=== PATIENT | male | born 1935 | race Caucasian/White ===

== ENCOUNTER 2017-09-05 19:54 | Inpatient (IN) | payer MEDICARE ==
[~2017-09-05] VITALS: Ht 180.3 cm; Wt 88.7 kg
[~2017-09-05 19:54] MED LIST: ASPIR 8181 MG PO; AVODART0.5 MG PO; B-121000 MCG PO; CLARITIN10 MG PO; FLOMAX0.4 MG PO; HYDROCHLOROTHIA25 MG PO; LISINOPRIL10 MG PO; LISINOPRIL5 MG PO; METOPROLOL SUCC25 MG PO; METOPROLOL TART25 MG PO; NITROGLYCERIN0.4 MG SL; SUPER B COMPLE150 MG PO
[2017-09-05] MEDS ORDERED: ASPIRIN 81 MG CHEW TAB PO ONE (20:45)
[2017-09-05 20:51] LABS: BASOPHILS % 0.4 % (0.0-1.0); EOSINOPHILS # (AUTO) 0.2 (0.0-0.4); EOSINOPHILS % 2.1 % (0.0-6.0); HEMATOCRIT 41.1 % (38.2-49.6); LYMPHOCYTES # (AUTO) 2.6 (1.0-3.2); MEAN CORPUSCULAR HEMOGLOBIN 30.4 pg (28-32); MEAN CORPUSCULAR HGB CONC 34.1 g/dL (31-35); MEAN CORPUSCULAR VOLUME 89.3 fL (81-99); MONOCYTES # (AUTO) 0.7 (0.2-0.8); MONOCYTES % 9.9 % (4.4-11.3); NEUTROPHILS # (AUTO) 3.7 (2.1-6.9); NEUTROPHILS % 51.3 % (38.7-80.0); PLATELET COUNT 200 x10e3/uL (140-360); RED CELL DISTRIBUTION WIDTH 13.6 % (11.7-14.4)
[2017-09-05] MEDS ORDERED: ALBUTEROL/IPRATROPIUM 3 ML NEB ONE (20:54)
[2017-09-05] MEDS ORDERED: ALBUTEROL/IPRATROPIUM 3 ML NEB NEB ONE (21:00)
[2017-09-05 21:02] LABS: ALANINE AMINOTRANSFERASE 34 IU/L (0-55); ALBUMIN 3.4 g/dL (3.5-5.0); ALBUMIN/GLOBULIN RATIO 0.9 (0.8-2.0); ALKALINE PHOSPHATASE 61 IU/L (40-150); ANION GAP 11.9 mmol/L (8-16); BLOOD UREA NITROGEN 16 mg/dL (7-26); BUN/CREATININE RATIO 15 (6-25); CALCIUM 9.1 mg/dL (8.4-10.2); CARBON DIOXIDE 25 mmol/L (22-29); CHLORIDE 106 mmol/L (98-107); CREATINE KINASE 154 IU/L (30-200); CREATININE, SERUM 1.08 mg/dL (0.72-1.25); EST GLOMERULAR FILTRATION RATE > 60 ML/MIN (60-); GLUCOSE 110 mg/dL (74-118); POTASSIUM 3.9 mmol/L (3.5-5.1); SODIUM 139 mmol/L (136-145)
[2017-09-05] MEDS ORDERED: SODIUM CHLORIDE 0.9% 50ML 50 ML ONE (21:36)
[2017-09-05] MEDS ORDERED: IOPAMIDOL 370 MG/ML 200 ML INFUS..BTL INJ ONE (21:37)
--- NOTE | 2017-09-05 21:53 | Diagnostic Imaging Report ---
CHEST 2 VIEWS, Technique: CHEST 2 VIEWS Comparison: 10/24/2015 Clinical history: Shortness of breath DISCUSSION: See impression IMPRESSION: 1. Mild enlargement of the cardiac silhouette. Aortic calcifications. 2. Hyperinflation which can be seen with obstructive lung disease/emphysema. 3. Central vascular congestion and/or mild edema with trace effusions. Linear left midlung scarring. Consider short-term follow-up to document resolution. Signed by: Dr Erin Bacon MD on 09/05/2017 9:50 PM
--- NOTE | 2017-09-05 22:32 | Diagnostic Imaging Report ---
EXAM: CT CHEST W DATE: 09/05/2017 9:23 PM INDICATION: Shortness of breath COMPARISON: None TECHNIQUE: Multidetector CT scanning of the chest was performed. Coronal and sagittal multiplanar reformations were obtained. IV Contrast: 100 ml Isovue 370/300 FINDINGS: Evaluation for pulmonary embolism is severely degraded by motion artifact precluding evaluation of the segmental/subsegmental levels. No evidence of central pulmonary embolism in the main or lobar or very proximal segmental pulmonary arteries. LUNGS AND PLEURA: Lung bases poorly assessed due to motion. Small layering bilateral pleural effusions with associated atelectasis. Underlying septal thickening. Calcified left upper lobe granulomas and focal lingular scarring. HEART, MEDIASTINUM, VESSELS: Cardiomegaly with left heart enlargement; no pericardial effusion. Coronary artery and aortic atherosclerotic disease. Ascending aorta is mildly enlarged, 4.1 cm. Main pulmonary artery is normal in size. Scattered prominent nodes which may be reactive. Calcified lymph nodes are also noted. UPPER ABDOMEN: Splenic and liver calcified granulomas. MUSCULOSKELETAL: Multilevel degenerative changes. IMPRESSION: 1. Degraded by motion artifact, as above. No evidence of acute central pulmonary embolism. 2. Cardiomegaly with edema, bibasilar atelectasis and small effusions. Signed by: Dr Erin Bacon MD on 09/05/2017 10:28 PM
[2017-09-05] MEDS ORDERED: FUROSEMIDE INJ 10 MG/ML 4 ML VIAL IV ONE (22:45)
[2017-09-05] MEDS ORDERED: FUROSEMIDE INJ 10 MG/ML 4 ML VIAL ONE (22:49)
[2017-09-05] MEDS ORDERED: SODIUM CHLORIDE FLUSH 10 ML SYR INJ PRN (23:00)
--- OUTSIDE RECORDS SUMMARY | 2017-09-05 23:31 | XMS REPORT ---
Author Author [facility] Address Unknown Phone Unavailable Care Team Providers Care Painting Supervisor Name Role Phone MARIE OCONNOR Unavailable Unavailable Problems This patient has no known problems. Allergies, Adverse Reactions, Alerts This patient has no known allergies or adverse reactions. Medications This patient has no known medications. Results Test Description Test Time Test Comments Text Results Atomic Results Result Comments CT CHEST W [place] [address] Patient Name: RUSTY TERRAZSA MR #: [id number] : 1935 Age/Sex: 82/M Req # : [id number] Adm Physician: Ordered by: MARIE OCONNOR MD Report # : [id number] Location: ER Room/Bed: Procedure: 0416 -[id number] CT/CT CHEST W Exam Date: 09/05/17 Exam Time: 2138 REPORT STATUS: Signed EXAM: CT CHEST W DATE: 09/05/2017 9:23 PM INDICATION: Shortness of breath COMPARISON: None TECHNIQUE: Multidetector CT scanning of the chest was performed. Coronal and sagittal multiplanar reformations were obtained. IV Contrast: 100 ml Isovue 370/ 300 FINDINGS: Evaluation for pulmonary embolism is severely degraded by motion artifact precluding evaluation of the segmental/subsegmental levels. No evidence of central pulmonary embolism in the main or lobar or very proximal segmental pulmonary arteries. LUNGS AND PLEURA: Lung bases poorly assessed due to motion. Small layering bilateral pleural effusions with associated atelectasis. Underlying septal thickening. Calcified left upper lobe granulomas and focal lingular scarring. HEART, MEDIASTINUM, VESSELS: Cardiomegaly with left heart enlargement; no pericardial effusion. Coronary artery and aortic atherosclerotic disease. Ascending aorta is mildly enlarged , 4.1 cm. Main pulmonary artery is normal in size. Scattered prominent nodes which may be reactive. Calcified lymph nodes are also noted. UPPER ABDOMEN: Splenic and liver calcified granulomas. MUSCULOSKELETAL: Multilevel degenerative changes. IMPRESSION: 1. Degraded by motion artifact, as above. No evidence of acute central pulmonary embolism. 2. Cardiomegaly with edema, bibasilar atelectasis and small effusions. Signed by: Dr Tammy Bacon MD on 09/05/2017 10:28 PM Dictated By: TAMMY BACON MD 27 Transcribed By: DINA on 09/05/172227 COPY TO: MARIE OCONNOR MD CHEST 2 VIEWS [place] [address] Patient Name: RUSTY TERRAZAS MR #: [id number] : 1935 Age/Sex: 82/M Req # : [id number] Adm Physician: Ordered by: MARIE OCONNOR MD Report # : [id number] Location: ER Room/Bed: Procedure: 0416 [id number] DX/CHEST 2 VIEWS Exam Date: Exam Time: REPORT STATUS: Signed CHEST 2 VIEWS, Technique: CHEST 2 VIEWS Comparison: 10/24/2015 Clinical history: Shortness of breath DISCUSSION: See impression IMPRESSION: 1. Mild enlargement of the cardiac silhouette. Aortic calcifications. 2. Hyperinflation which can be seen with obstructive lung disease/emphysema. 3. Central vascular congestion and/or mild edema with trace effusions. Linear left midlung scarring. Consider short-term follow-up to document resolution. Signed by: Dr Tammy Bacon MD on 09/05/2017 9:50 PM Dictated By: TAMMY BACON MD 49 Transcribed By: DINA on 09/05 COPY TO: MARIE OCONNOR MD
[2017-09-05 23:51] VITALS: BP 114/77
[2017-09-06] VITALS (7 sets, daily range): BP systolic 106–141; BP diastolic 75–87
[2017-09-06] MEDS ORDERED: OXYBUTYNIN CHLOR5 M1 PO (00:58)
[2017-09-06] MEDS ORDERED: LEVOCETIRIZINE D5 MG PO (00:58)
[2017-09-06 06:06] LABS: BASOPHILS % 0.4 % (0.0-1.0); EOSINOPHILS # (AUTO) 0.1 (0.0-0.4); EOSINOPHILS % 1.8 % (0.0-6.0); HEMATOCRIT 40.9 % (38.2-49.6); HEMOGLOBIN 13.9 g/dL (14.0-18.0); LYMPHOCYTES % 28.9 % (18.0-39.1); MEAN CORPUSCULAR HEMOGLOBIN 30.3 pg (28-32); MEAN CORPUSCULAR VOLUME 89.1 fL (81-99); MONOCYTES # (AUTO) 0.8 (0.2-0.8); NEUTROPHILS % 57.3 % (38.7-80.0); PLATELET COUNT 186 x10e3/uL (140-360); RED BLOOD COUNT 4.59 x10e6/uL (4.3-5.7); RED CELL DISTRIBUTION WIDTH 13.6 % (11.7-14.4)
[2017-09-06 06:33] LABS: ALANINE AMINOTRANSFERASE 26 IU/L (0-55); ALBUMIN 3.6 g/dL (3.5-5.0); ALKALINE PHOSPHATASE 67 IU/L (40-150); ANION GAP 14.6 mmol/L (8-16); BLOOD UREA NITROGEN 15 mg/dL (7-26); BUN/CREATININE RATIO 14 (6-25); CALCIUM 9.3 mg/dL (8.4-10.2); CARBON DIOXIDE 24 mmol/L (22-29); CHLORIDE 106 mmol/L (98-107); CREATINE KINASE 136 IU/L (30-200); CREATININE, SERUM 1.09 mg/dL (0.72-1.25); EST GLOMERULAR FILTRATION RATE > 60 ML/MIN (60-); GLUCOSE 105 mg/dL (74-118); POTASSIUM 3.6 mmol/L (3.5-5.1); SODIUM 141 mmol/L (136-145)
[2017-09-06 08:21] LABS: CHOL/HDL RATIO 2.7 (3.9-4.7)
[2017-09-06 08:40] LABS: THYROID STIMULATING HORMONE 1.73 uIU/mL (0.350-4.940)
[2017-09-06] MEDS ORDERED: TAMSULOSIN HCL 0.4 MG CAP PO SCH (09:00)
[2017-09-06] MEDS: LORATADINE 10 MG TAB PO SCH (09:42)
[2017-09-06] MEDS: FUROSEMIDE INJ 10 MG/ML 4 ML VIAL IV SCH ×2 (09:42→16:42)
--- NOTE | 2017-09-06 10:48 | Consultation ---
DATE OF CONSULTATION: September 06, 2017 REASON FOR CONSULTATION: CHF exacerbation. REQUESTING PHYSICIAN: Dr. Tomás Vickers HPI: This is a pleasant, 82-year-old male that presented with shortness of breath. According to the patient and the at the bedside, he had shortness of breath that has been going on for 3 days now that gets worse with walking and coughing. He stated also that he had difficulty lying flat, and he decided to come into the emergency room for evaluation. He has a history of systolic CHF with EF of 20%. He has refused cardiac intervention in the past. He denied any chest pain, any dizziness, any diaphoresis or headache. Troponin was negative. BNP was 553. PAST MEDICAL HISTORY: CHF, BPH and hypertension. PAST SURGICAL HISTORY: Hemorrhoidectomy, hernia repair, bilateral wrist surgery, and back surgery. FAMILY HISTORY: Noncontributory. SOCIAL HISTORY: No smoking. He lives at home with the . MEDICATIONS: See med list. ALLERGIES: HE HAS MULTIPLE ALLERGIES, SEE CHART. REVIEW OF SYSTEMS: Negative except those mentioned above. PHYSICAL EXAMINATION GENERAL: He is awake, alert and oriented times 3. VITAL SIGNS: Temperature 98, heart rate 92, blood pressure 130/78, respirations 15. Oxygen saturation 97% on 2 liters nasal cannula. HEENT: Mucous membranes moist. NECK: Supple. LUNGS: Bilateral with decreased breath sounds. CARDIOVASCULAR: S1 and S2 present. ABDOMEN: Soft. EXTREMITIES: Bilateral lower with no edema. NEUROLOGIC: Intact. LABORATORY DATA: Sodium 141, potassium 3.6, chloride 106, CO2 24, BUN 15, creatinine 1.09, glucose 105. White blood cells 7.03, hemoglobin 13.9, hematocrit 40.9, platelets 186. IMPRESSION 1. Congestive heart failure exacerbation. 2. Hypertension. 3. History of BPH. ASSESSMENT AND PLAN: Will go ahead and get an echocardiogram to reassess the LV and valve function. Will continue diuretic, beta junior and LORIE inhibitor. He had abnormal stress in the past and low EF and had refused cardiac catheterization and ICD, but today he decided to proceed. We will go ahead and set him up for cardiac catheterization and possible ICD placement with EP. Further cardiac workup pending clinical course. Thank you for this consultation. Dictated by Jaci Aguilar NP Job#: [id number]
[2017-09-06 15:26] LABS: CREATINE KINASE MB 2.7 ng/mL (0-5.0)
[2017-09-06] MEDS: FAMOTIDINE 20 MG TAB PO SCH (16:42)
[2017-09-06] MEDS: ENOXAPARIN SOD INJ 40 MG/0.4 ML SYR SC SCH (16:45)
[2017-09-06] MEDS: TAMSULOSIN HCL 0.4 MG CAP PO SCH (21:00)
--- NOTE | 2017-09-06 23:53 | History and Physical ---
PRIMARY CARE PHYSICIAN: Dr. Wei Kate CARDIOLOGY: Dr. Espinal CHIEF COMPLAINT: Shortness of breath with exertion. HISTORY OF PRESENT ILLNESS: This is 82-year-old man with a history of bradycardia and hypotension/hypertension, who was recently taken off his beta junior 2 weeks ago by his primary care doctor, now developing shortness of breath with exertion that prompted visit to hospital. He denies any leg swelling. Denies any chest pain. Imaging showed bilateral pleural effusions. He is admitted for further evaluation and management. PAST MEDICAL HISTORY: Remote history of possible congestive heart failure, hypertension, hyperlipidemia, hypotension, peripheral vascular disease, bradycardia. PAST SURGICAL HISTORY: Tonsillectomy, hernia repair. ALLERGIES: PER ELECTRONIC MEDICAL RECORD. FAMILY HISTORY: Four strokes and 3 MIs in his father. SOCIAL HISTORY: Patient is . He has 5 children. No alcohol or illicits. He has a remote history of smoking. MEDICATIONS: Per electronic medical record. REVIEW OF SYSTEMS: Denies any dizziness or chest pain. PHYSICAL EXAMINATION: VITAL SIGNS: Reviewed. GENERAL APPEARANCE: Tired-appearing man resting in bed. HEENT: Anicteric. Pupils respond to light. No oral lesions. CARDIOVASCULAR: Normal S1 and S2. LUNGS: He has moderate breath sounds, reduced breath sounds at the bases. ABDOMEN: Soft, nontender. EXTREMITIES: Trace edema. SKIN: Dry. PSYCHIATRIC: Flat affect. LABS: Reviewed. MEDICATIONS: Reviewed. ASSESSMENT AND PLAN: This is an 82-year-old man. 1. Acute congestive heart failure. Type unknown. Will obtain echocardiogram. Follow up echocardiogram. Cardiology consultation. Continue intravenous Lasix. 2. Bilateral pleural effusions secondary to congestive heart failure exacerbation. Will continue diuretics and obtain inputs and outputs. 3. Overweight state. His body mass index is 27.9. 4. Left bundle-branch block. Will defer to cardiology, unclear whether this is old or new. Defer to Dr. Espinal. 5. Hypertension. Will continue with angiotensin-converting enzyme inhibitor, beta junior. 6. Benign prostatic hypertrophy. Continue Flomax. 7. Prophylaxis. Will use Lovenox and Pepcid. 8. Disposition. Monitor closely. Add aspirin 81 mg daily, and follow up cardiology recommendations. Job#: [id number]
[2017-09-07] VITALS (7 sets, daily range): BP systolic 109–126; BP diastolic 60–79
[2017-09-07] MEDS ORDERED: IOPAMIDOL 370 MG/ML 200 ML INFUS..BTL INJ ONE ×2 (06:35→07:57)
[2017-09-07] MEDS ORDERED: LIDOCAINE HCL 2% LOCAL 20 ML VIAL ONE (06:35)
[2017-09-07] MEDS ORDERED: FENTANYL CITRATE/PF 100MCG/2 ML INJ ONE (06:35)
[2017-09-07] MEDS ORDERED: MIDAZOLAM HCL 2 MG/2 ML VIAL ONE (06:35)
[2017-09-07] MEDS ORDERED: SODIUM CHLORIDE 0.9% 1000ML 1,000 ML ONE (06:35)
[2017-09-07] MEDS ORDERED: HEPARIN SOD/SOD CHLORIDE 2,000 ML ONE (06:35)
--- NOTE | 2017-09-07 08:28 | Consultation ---
DATE OF CONSULTATION: September 06, 2017 REASON FOR CONSULT: Cardiomyopathy. 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 He is short of breath with minimal exertion. He was admitted this time with progressive shortness of breath and found to be volume overloaded. Currently, planning to undergo left heart catheterization by Dr. Espinal. We were consulted to consider defibrillator. No history of syncope or palpitations. REVIEW OF SYSTEMS CONSTITUTIONAL: Negative. CARDIOVASCULAR: As per HPI. RESPIRATORY: Negative. GASTROINTESTINAL: Negative. GENITOURINARY: Negative. MUSCULOSKELETAL: Negative. HEENT: Eyes negative. ENT negative. ALLERGY/IMMUNOLOGY: Negative. PSYCHIATRIC: Negative. PAST MEDICAL HISTORY: Hypertension, cardiomyopathy. SURGICAL HISTORY: Negative. FAMILY HISTORY: No premature coronary artery disease. SOCIAL HISTORY: No smoking, alcohol or illicit drugs. PHYSICAL EXAMINATION VITALS: Blood pressure 128/60, pulse 80, O2 sat 98%. GENERAL: No acute distress. HEENT: Moist mucous membranes. CARDIOVASCULAR: Regular. RESPIRATORY: Clear. ABDOMEN: Soft and nontender. MUSCULOSKELETAL: Two plus distal pulses. NEUROLOGICAL: No focal deficit. SKIN: No lesions. PSYCHIATRY: Normal thought process. EKG is sinus, left bundle branch block. IMPRESSION 1. Chronic nonischemic dilated cardiomyopathy with ejection fraction of 25% to 30% refractory to medical therapy. 2. Congestive heart failure, class III. 3. Left bundle branch block. RECOMMENDATIONS: I had a long discussion with the patient. He will benefit from a cardiac defibrillator for primary prevention of sudden cardiac , and also [employer] given the presence of left bundle branch block. This was explained in detail, benefits and risks, and the procedure in detail as well. The patient voices understanding and wishes to proceed. Will tentatively plan for a biventricular cardiac defibrillator. Will await results from coronary angiogram in case the patient undergoes any revascularization intervention. Then will hold off on defibrillator, and we then plan for procedure 3 months post revascularization. However, if there is no indication for revascularization, then will go ahead as inpatient before discharge. Thank you for letting us participate in Mr. Dominique's healthcare. Job#: [id number] [place]
--- NOTE | 2017-09-07 08:52 | Operative Report ---
DATE OF PROCEDURE: September 07, 2017 INDICATIONS: CHF and cardiomyopathy. ANESTHESIA USED: Two percent lidocaine for local anesthesia and 25 mcg of fentanyl for conscious sedation. DESCRIPTION OF PROCEDURE: After informed consent, patient was brought to the cardiac catheterization laboratory and placed on the table. Both groins were painted and draped in a sterile fashion. Lidocaine injected in the right groin for local anesthesia. The right femoral artery was accessed by Seldinger technique, and a 5-Ethiopian sheath was placed in the right femoral artery. Left main artery was cannulated using a JL4, 5-Ethiopian catheter. Coronary angiogram was performed. Images obtained in multiple views. Attempts were made to cannulate the right coronary artery using a 3DRC catheter and an Amplatz catheter. However, it would not access the ostium selectively. LV-gram was performed using a pigtail catheter. Since the right coronary artery could not be selectively cannulated, ascending aortogram was performed using a pigtail catheter. Patient tolerated the procedure without any complications. 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 REPORT LEFT MAIN: Normal caliber. No significant stenosis. LEFT ANTERIOR DESCENDING: Of moderate to large caliber. Has a 20% proximal lesion. LEFT CIRCUMFLEX: Large caliber dominant vessel and there is a 20% proximal lesion. RIGHT CORONARY ARTERY: It appears to arise from the noncoronary cusp. It was subselective injection. Appears to have some luminal irregularities without any significant stenosis. LV-GRAM: Shows diffuse hypokinesis of the left ventricle. Overall ejection fraction was 15%. HEMODYNAMICS: Aortic pressure is 102/68. LV pressure is 103/7. LVEDP 17. PLAN: Possible ICD. Job#: [id number] [place]
[2017-09-07] MEDS: FUROSEMIDE INJ 10 MG/ML 4 ML VIAL IV SCH ×2 (09:00→16:13)
[2017-09-07] MEDS: LORATADINE 10 MG TAB PO SCH (09:22)
[2017-09-07] MEDS: FAMOTIDINE 20 MG TAB PO SCH ×2 (09:22→16:12)
[2017-09-07] MEDS: METOPROLOL TARTRATE 25 MG TAB PO SCH (09:22)
[2017-09-07] MEDS: LISINOPRIL 2.5 MG TAB PO SCH (09:23)
[2017-09-07] MEDS: ENOXAPARIN SOD INJ 40 MG/0.4 ML SYR SC SCH (16:13)
[2017-09-07] MEDS: TAMSULOSIN HCL 0.4 MG CAP PO SCH (21:35)
[2017-09-08] VITALS: BP 108/62
[2017-09-08 04:00] VITALS: BP 103/67
[2017-09-08 06:15] LABS: BASOPHILS % 0.7 % (0.0-1.0); EOSINOPHILS # (AUTO) 0.1 (0.0-0.4); EOSINOPHILS % 2.3 % (0.0-6.0); HEMATOCRIT 38.4 % (38.2-49.6); HEMOGLOBIN 13.1 g/dL (14.0-18.0); LYMPHOCYTES # (AUTO) 1.8 (1.0-3.2); LYMPHOCYTES % 32.6 % (18.0-39.1); MEAN CORPUSCULAR HEMOGLOBIN 30.5 pg (28-32); MEAN CORPUSCULAR HGB CONC 34.1 g/dL (31-35); MEAN CORPUSCULAR VOLUME 89.3 fL (81-99); MONOCYTES # (AUTO) 0.6 (0.2-0.8); MONOCYTES % 10.7 % (4.4-11.3); NEUTROPHILS % 53.2 % (38.7-80.0); PLATELET COUNT 170 x10e3/uL (140-360); RED CELL DISTRIBUTION WIDTH 13.3 % (11.7-14.4)
[2017-09-08 06:44] LABS: ANION GAP 12.2 mmol/L (8-16); BLOOD UREA NITROGEN 19 mg/dL (7-26); BUN/CREATININE RATIO 20 (6-25); CALCIUM 8.6 mg/dL (8.4-10.2); CARBON DIOXIDE 27 mmol/L (22-29); CHLORIDE 103 mmol/L (98-107); CREATININE, SERUM 0.93 mg/dL (0.72-1.25); EST GLOMERULAR FILTRATION RATE > 60 ML/MIN (60-); GLUCOSE 103 mg/dL (74-118); POTASSIUM 3.2 mmol/L (3.5-5.1); SODIUM 139 mmol/L (136-145)
[2017-09-08 08:00] VITALS: BP 111/55
[2017-09-08] MEDS: FAMOTIDINE 20 MG TAB PO SCH ×2 (08:00→16:30)
--- NOTE | 2017-09-08 08:42 | Progress Note ---
DATE: September 07, 2017 TIME: 7:30 a.m. OVERNIGHT: No events. Feeling a little better. REVIEW OF SYSTEMS: Denies any dizziness or chest pain. VITAL SIGNS: Reviewed. PHYSICAL EXAMINATION GENERAL APPEARANCE: Tired-appearing man resting in bed. HEENT: Anicteric. Pupils respond to light. No oral lesions. CARDIOVASCULAR: Normal S1 and S2. LUNGS: Moderate breath sounds, reduced breath sounds at the bases. ABDOMEN: Soft, nontender. EXTREMITIES: Trace edema. SKIN: Dry. PSYCHIATRIC: Flat affect. LABS: Reviewed. MEDICATIONS: Reviewed. ASSESSMENT: An 82-year-old man. 1. Acute congestive heart failure exacerbation. 2. Bilateral pleural effusions. 3. Overweight state. 4. Left bundle-branch block. 5. Hypertension. 6. BPH. PLAN 1. Follow up echocardiogram. 2. Continue diuretics. 3. Monitor blood pressure. 4. Continue LORIE inhibitor. 5. Continue beta junior. 6. Continue physical therapy. Job#: [id number]
--- NOTE | 2017-09-08 08:45 | Progress Note ---
DATE: September 08, 2017 TIME: 8:17 a.m. OVERNIGHT: The patient had heart catheterization, which showed left ventricular ejection fraction of 15%. No significant coronary artery disease. REVIEW OF SYSTEMS: Denies any chest pain. PHYSICAL EXAMINATION VITAL SIGNS: Reviewed. GENERAL: A tired-appearing man resting in bed. HEENT: Anicteric. Pupils respond to light. No oral lesions. CARDIOVASCULAR: Normal S1 and S2. LUNGS: Moderate breath sounds reduced at the bases. ABDOMEN: Soft, nontender and nondistended. EXTREMITIES: No edema or calf tenderness. NEUROLOGICAL: Alert and oriented times 3. Moving all extremities. SKIN: Dry. PSYCHIATRIC: Normal affect. LABS: Reviewed. MEDICATIONS: Reviewed. ASSESSMENT: An 82-year-old man with: 1. Acute exacerbation of systolic congestive heart failure. 2. Bilateral pleural effusion. 3. Overweight state. 4. Left bundle branch block. 5. BPH. 6. Hypertension. 7. Hypokalemia. PLAN 1. Heart catheterization without any significant coronary artery disease. 2. Left ventricular ejection fraction 15%. Will await defibrillator placement. 3. Hypokalemia. Replace potassium now. 4. Continue LORIE inhibitor, Lasix and metoprolol. 5. Continue PPI. Job#: [id number] KORY
[2017-09-08] MEDS ORDERED: POTASSIUM CHLORIDE 20 MEQ TAB CR PO ONE (08:50)
[2017-09-08] MEDS: LORATADINE 10 MG TAB PO SCH (09:47)
[2017-09-08] MEDS: METOPROLOL TARTRATE 25 MG TAB PO SCH (09:47)
[2017-09-08] MEDS: LISINOPRIL 2.5 MG TAB PO SCH (09:47)
[2017-09-08] MEDS: FUROSEMIDE INJ 10 MG/ML 4 ML VIAL IV SCH ×2 (09:47→17:00)
[2017-09-08 12:00] VITALS: BP 106/58
[2017-09-08] MEDS ORDERED: LIDOCAINE HCL 2% LOCAL 20 ML VIAL ONE ×2 (16:14→17:00)
[2017-09-08] MEDS ORDERED: SODIUM CHLORIDE 0.9% 500ML 500 ML ONE (16:14)
[2017-09-08] MEDS ORDERED: MIDAZOLAM HCL 2 MG/2 ML VIAL ONE (16:26)
[2017-09-08] MEDS ORDERED: FENTANYL CITRATE/PF 100MCG/2 ML INJ ONE (16:26)
[2017-09-08] MEDS ORDERED: SODIUM CHLORIDE 0.9% 1000ML 1,000 ML ONE (16:27)
[2017-09-08] MEDS ORDERED: VANCOMYCIN 1GM/NS 250 ML 250 ML ONE (16:27)
[2017-09-08] MEDS ORDERED: VANCOMYCIN HCL 1 GM VIAL TOP NR (17:00)
[2017-09-08] MEDS: ENOXAPARIN SOD INJ 40 MG/0.4 ML SYR SC SCH (17:00)
[2017-09-08 19:00] VITALS: BP 122/64
[2017-09-08 20:00] VITALS: BP 122/64
[2017-09-08] MEDS: TAMSULOSIN HCL 0.4 MG CAP PO SCH (21:00)
[2017-09-08] MEDS: DOCUSATE SODIUM 100 MG CAP PO SCH (21:56)
[2017-09-08] MEDS: SENNA-S TABLET PO SCH (21:56)
[2017-09-08] MEDS ORDERED: TRAMADOL HCL 50 MG TAB PO PRN (22:00)
[2017-09-09] VITALS (8 sets, daily range): BP systolic 107–130; BP diastolic 60–83
[2017-09-09] MEDS: FAMOTIDINE 20 MG TAB PO SCH ×2 (07:30→16:45)
[2017-09-09] MEDS: FUROSEMIDE INJ 10 MG/ML 4 ML VIAL IV SCH ×2 (09:17→16:45)
[2017-09-09] MEDS: LORATADINE 10 MG TAB PO SCH (09:17)
[2017-09-09] MEDS: LISINOPRIL 2.5 MG TAB PO SCH (09:18)
[2017-09-09] MEDS: METOPROLOL TARTRATE 25 MG TAB PO SCH (09:18)
--- NOTE | 2017-09-09 10:34 | Operative Report ---
DATE OF PROCEDURE: September 08, 2017 REFERRING PHYSICIAN: Dr. Espinal PREOPERATIVE DIAGNOSES 1. Nonischemic dilated cardiomyopathy with ejection fraction of 25% refractory to medical therapy. 2. Congestive heart failure, class III. 3. Left bundle branch block. POSTOPERATIVE DIAGNOSES 1. Nonischemic dilated cardiomyopathy with ejection fraction of 25% refractory to medical therapy. 2. Congestive heart failure, class III. 3. Left bundle branch block. ESTIMATED BLOOD LOSS: 5 mL. PROCEDURES PERFORMED 1. Biventricular cardiac defibrillator implant. 2. Moderate sedation. 3. Moderate conscious sedation was provided under my direct supervision and by circulating nurse. SEDATION: Approximate time 45 minutes of Versed and fentanyl. COMPLICATIONS: None. See sedation form for details. DESCRIPTION OF PROCEDURE: After informed consent was obtained, the patient was brought to the electrophysiology laboratory in a fasting and sedated state. Area over his chest was prepped and draped in the usual sterile fashion. Moderate sedation and prophylactic antibiotics were given. One percent lidocaine was used as local anesthetic. A 3 cm skin incision was made in the left subclavian area. Electrocautery sharp and blunt dissection were used to reach the muscular fascia. A pocket was created for implantation of the device. Vascular access was obtained times 3 in the left axillary vein using modified Seldinger technique, 9-Sami, 9.5-Sami and 6-Sami sheaths were placed. The ventricular lead advanced to the RV apex. R-wave 17, pacing 0.6, arterial 0.5, impedance 570. The coronary sinus was cannulated using AL2 catheter and Wooly wire. Coronary sinus angiogram demonstrated good posterolateral branch, which was successfully cannulated. The lead demonstrated pacing threshold of 0.3 at 0.5. Impedance 770. Then the atrial lead was advanced to the right internal appendage. P-wave 4.4, pacing 0.4, arterial 0.5, and impedance 598. All sheaths were removed from the body. Leads were secured to the fascia using 0 silk. Pocket was irrigated with antibiotic solution using the pulse change director. Hemostasis was meticulous. All leads were connected to the device. The entire ICD system placed in the pocket. The incision was closed using Vicryl and Dermabond. The patient tolerated the procedure well. The procedure was then complete. HARDWARE IMPLANTED: The new defibrillator is [employer] ePAR, model number [id number], [id number]. The atrial lead is [employer] 7740, [id number]. The right ventricular lead is [employer] 3959, [id number]. The left ventricular lead is [employer] 4311, [id number]. IMPRESSION: Successful biventricular cardiac defibrillator implant via left axillary vein. PLAN: Routine postop monitoring in telemetry bed. Chest x-ray. Follow up in 2 weeks. Job#: [id number] [place]
[2017-09-09] MEDS: ENOXAPARIN SOD INJ 40 MG/0.4 ML SYR SC SCH (16:45)
[2017-09-09] MEDS: DOCUSATE SODIUM 100 MG CAP PO SCH (16:45)
[2017-09-09] MEDS: SENNA-S TABLET PO SCH (16:45)
[2017-09-09] MEDS: TAMSULOSIN HCL 0.4 MG CAP PO SCH (20:37)
[2017-09-10 01:05] VITALS: BP 130/80
[2017-09-10 04:00] VITALS: BP 120/81
[2017-09-10] MEDS ORDERED: COLACE100 M1 PO (07:26)
[2017-09-10] MEDS ORDERED: FLOMAX0.4 MG PO (07:26)
[2017-09-10] MEDS ORDERED: FAMOTIDINE20 MG PO (07:26)
[2017-09-10] MEDS ORDERED: LOPRESSOR25 MG PO (07:26)
[2017-09-10] MEDS ORDERED: FUROSEMIDE40 MG PO (07:26)
[2017-09-10] MEDS ORDERED: LISINOPRIL2.5 MG PO (07:26)
[2017-09-10 07:53] VITALS: BP 120/66
[2017-09-10] MEDS: METOPROLOL TARTRATE 25 MG TAB PO SCH (08:38)
[2017-09-10] MEDS: LORATADINE 10 MG TAB PO SCH (08:38)
[2017-09-10] MEDS: FAMOTIDINE 20 MG TAB PO SCH (08:38)
[2017-09-10] MEDS: LISINOPRIL 2.5 MG TAB PO SCH (08:39)
[2017-09-10] MEDS: SENNA-S TABLET PO SCH (08:39)
[2017-09-10] MEDS: DOCUSATE SODIUM 100 MG CAP PO SCH (09:00)
[2017-09-10] MEDS ORDERED: FUROSEMIDE 40 MG TAB PO SCH (10:00)
--- NOTE | 2017-09-12 07:46 | Progress Note ---
DATE: September 09, 2017 TIME: 7 a.m. OVERNIGHT: No events. REVIEW OF SYSTEMS: Denies any dizziness. PHYSICAL EXAMINATION VITAL SIGNS: Reviewed. GENERAL: A tired-appearing man resting in bed. HEENT: Anicteric. Pupils respond to light. No oral lesions. CARDIOVASCULAR: Normal S1 and S2. LUNGS: Moderate breath sounds. ABDOMEN: Soft, nontender and nondistended. EXTREMITIES: No edema. SKIN: Dry. PSYCHIATRIC: Flat affect. LABS: Reviewed. MEDICATIONS: Reviewed. ASSESSMENT: An 82-year-old man with: 1. Acute exacerbation of systolic congestive heart failure. 2. Bilateral pleural effusion. 3. Overweight state. 4. Left bundle branch block. 5. BPH. 6. Hypertension. 7. Hypokalemia. PLAN 1. Continue current medication regimen. 2. AICD. 3. Follow up potassium level. 4. Continue LORIE inhibitor, Lasix and metoprolol. 5. Continue PPI. 6. Discharge planning. Job#: [id number] [place]
--- NOTE | 2017-09-12 08:00 | Discharge Summary ---
PRINCIPAL DIAGNOSES 1. Acute exacerbation of systolic congestive heart failure, status post automatic implantable cardioverter-defibrillator placement. Left ventricular ejection fraction 15%. 2. Bilateral pleural effusions. 3. Overweight state. 4. Left bundle branch block. 5. BPH. 6. Hypokalemia. SECONDARY DIAGNOSIS: Hypertension. CHIEF COMPLAINT: Shortness of breath. HISTORY OF PRESENT ILLNESS: This is an 82-year-old man with shortness of breath. Please refer to the H and P for further details. HOSPITAL COURSE: The patient was found to have bilateral pleural effusions. He was diuresed. He had acute exacerbation of systolic congestive heart failure and underwent heart catheterization. No significant coronary artery disease but he did have left ventricular ejection fraction of about 15%. The patient underwent AICD placement and did well. Subsequently transitioned out of the hospital. DISCHARGE MEDICATIONS: Per electronic medical record and include LORIE inhibitor, Lasix and metoprolol. FOLLOWUP 1. With primary care doctor in 1 week. 2. Follow up with cardiology in 2 weeks. CONDITION ON DISCHARGE: Stable and improving. DISCHARGE LOCATION: Home. Job#: [id number]
== END 2017-09-10 10:06 | disposition home or self-care (01) | DRG 223 ==
LOC: ER 19:54 → ERHOLD 23:29 → MED/SURG2 23:31
PROVIDERS: ADMIT Internal Medicine; ATTEND Internal Medicine
PROC: 4A023N7 Measurement of Cardiac Sampling and Pressure, Left Heart, Percutaneous Approach (ICD-10-PCS; 2017-09-07)
PROC: B2111ZZ Fluoroscopy of Multiple Coronary Arteries using Low Osmolar Contrast (ICD-10-PCS; 2017-09-07)
PROC: B2151ZZ Fluoroscopy of Left Heart using Low Osmolar Contrast (ICD-10-PCS; 2017-09-07)
PROC: 0JH639Z Insertion of Cardiac Resynchronization Defibrillator Pulse Generator into Chest Subcutaneous Tissue and Fascia, Percutaneous Approach (ICD-10-PCS; principal; 2017-09-08)
PROC: 02HL3KZ Insertion of Defibrillator Lead into Left Ventricle, Percutaneous Approach (ICD-10-PCS; 2017-09-08)
PROC: 02H63KZ Insertion of Defibrillator Lead into Right Atrium, Percutaneous Approach (ICD-10-PCS; 2017-09-08)
DX: I11.0 Hypertensive heart disease with heart failure (principal); I44.7 Left bundle-branch block, unspecified; E87.6 Hypokalemia; I50.23 Acute on chronic systolic (congestive) heart failure; E66.9 Obesity, unspecified; Z68.27 Body mass index [BMI] 27.0-27.9, adult; N40.0 Benign prostatic hyperplasia without lower urinary tract symptoms
CPT/HCPCS: 36005; 36140; 36200; 36415; 71046; 71260; 77001; 77002; 80048; 80053; 80061; 82550; 82553; 83036; 83880; 84132; 84443; 84484; 85025; 85379; 93005; 93306; 93452; 93458; 94640; 99284; C1898; J1650; J1940; J2001; J2250; J3370; J7030; J7040; Q9967

== ENCOUNTER 2018-06-13 15:20 | Inpatient (IN) | payer MEDICARE ==
[~2018-06-13] VITALS: Ht 180.3 cm; Wt 85.7 kg
[~2018-06-13 15:20] MED LIST changes: +COLACE100 M1 PO; +FAMOTIDINE20 MG PO; +FUROSEMIDE40 MG PO; +LEVOCETIRIZINE D5 MG PO; +LISINOPRIL2.5 MG PO; +LOPRESSOR25 MG PO; +OXYBUTYNIN CHLOR5 M1 PO
[2018-06-13 15:53] LABS: BASOPHILS % 0.6 % (0.0-1.0); EOSINOPHILS # (AUTO) 0.2 (0.0-0.4); EOSINOPHILS % 2.8 % (0.0-6.0); HEMATOCRIT 45.5 % (38.2-49.6); LYMPHOCYTES # (AUTO) 2.2 (1.0-3.2); LYMPHOCYTES % 34.2 % (18.0-39.1); MEAN CORPUSCULAR HEMOGLOBIN 30.4 pg (28-32); MEAN CORPUSCULAR VOLUME 92.1 fL (81-99); MONOCYTES # (AUTO) 0.7 (0.2-0.8); MONOCYTES % 10.8 % (4.4-11.3); NEUTROPHILS # (AUTO) 3.3 (2.1-6.9); NEUTROPHILS % 51.4 % (38.7-80.0); PLATELET COUNT 165 x10e3/uL (140-360); RED BLOOD COUNT 4.94 x10e6/uL (4.3-5.7); RED CELL DISTRIBUTION WIDTH 13.5 % (11.7-14.4)
[2018-06-13 16:01] LABS: INR 0.92; PROTHROMBIN TIME 13.2 seconds (11.9-14.5)
[2018-06-13 16:02] LABS: PARTIAL THROMBOPLASTIN TIME 28.6 seconds (23.8-35.5)
[2018-06-13 16:11] LABS: ALBUMIN 4.1 g/dL (3.5-5.0); ALBUMIN/GLOBULIN RATIO 1.1 (0.8-2.0); ANION GAP 14.8 mmol/L (8-16); CREATININE, SERUM 1.36 mg/dL (0.72-1.25); POTASSIUM 3.8 mmol/L (3.5-5.1)
[2018-06-13 16:18] LABS: CREATINE KINASE MB 4.3 ng/mL (0-5.0)
[2018-06-13] MEDS ORDERED: METOPROLOL TARTRATE INJ 1 MG/ML VIAL IV NR (16:45)
--- NOTE | 2018-06-13 17:55 | Diagnostic Imaging Report ---
Frontal view of the chest - 2 images HISTORY: Shortness of breath COMPARISON: Chest radiographs September 05, 2017 DISCUSSION: Portable technique, limits sensitivity of the exam. Soft tissue attenuation partially limits sensitivity of the exam. Overlying monitoring leads. Tubes/Lines: A left-sided implanted cardiac device. Lungs and pleura: Mild prominence of the pulmonary interstitial markings. Stable small left calcified granuloma. No evidence of a consolidative pneumonia or pulmonary alveolar edema. No definite pleural effusion or pneumothorax is identified. Heart and mediastinum: The cardiac silhouette and central pulmonary vasculature are mildly enlarged. Bones and soft tissues: Appear unremarkable, given this limited exam. IMPRESSION: Mild cardiomegaly with central pulmonary congestion and mild interstitial edema. Signed by: Dr. Alexis Guerrero D.O., M.M.M. on 06/13/2018 5:52 PM
[2018-06-13] MEDS ORDERED: SODIUM CHLORIDE FLUSH 10 ML SYR INJ PRN (18:45)
[2018-06-13] MEDS ORDERED: METOPROLOL TART50 MG PO (19:03)
[2018-06-13] MEDS ORDERED: GABAPENTIN100 MG PO (19:05)
[2018-06-13] MEDS ORDERED: ECOTRIN325 MG PO (19:05)
[2018-06-13] MEDS ORDERED: COLACE100 MG PO (19:06)
[2018-06-13 20:30] VITALS: BP 110/66
[2018-06-13] MEDS ORDERED: FUROSEMIDE INJ 10 MG/ML 2 ML VIAL IV ONE (23:00)
[2018-06-13] MEDS: GABAPENTIN 100 MG CAP PO SCH (23:15)
--- NOTE | 2018-06-13 23:15 | NUR ---
PT IS TRANSFERRED FROM ER .PT IS AOX3 .DENIES PAIN IV LEFT AC RESPIRATIONS ARE EVEN AND UNLABORED .PT HAS REDNESS TO THE LEFT INNER ANKLE DUE TO BURN.FAMILY AT THE BEDSIDE .CALL [facility] WITH IN REACH
[2018-06-14] VITALS (8 sets, daily range): BP systolic 80–118; BP diastolic 50–72
[2018-06-14 02:01] LABS: CREATINE KINASE MB 3.3 ng/mL (0-5.0)
[2018-06-14 06:07] LABS: BASOPHILS % 0.6 % (0.0-1.0); EOSINOPHILS # (AUTO) 0.3 (0.0-0.4); EOSINOPHILS % 3.9 % (0.0-6.0); HEMATOCRIT 41.3 % (38.2-49.6); HEMOGLOBIN 13.9 g/dL (14.0-18.0); LYMPHOCYTES # (AUTO) 2.2 (1.0-3.2); LYMPHOCYTES % 32.1 % (18.0-39.1); MEAN CORPUSCULAR HEMOGLOBIN 30.5 pg (28-32); MEAN CORPUSCULAR HGB CONC 33.7 g/dL (31-35); MEAN CORPUSCULAR VOLUME 90.6 fL (81-99); MONOCYTES # (AUTO) 0.7 (0.2-0.8); NEUTROPHILS # (AUTO) 3.5 (2.1-6.9); NEUTROPHILS % 52.1 % (38.7-80.0); PLATELET COUNT 159 x10e3/uL (140-360); RED BLOOD COUNT 4.56 x10e6/uL (4.3-5.7); RED CELL DISTRIBUTION WIDTH 13.5 % (11.7-14.4)
[2018-06-14 06:29] LABS: ANION GAP 15.1 mmol/L (8-16); BLOOD UREA NITROGEN 18 mg/dL (7-26); BUN/CREATININE RATIO 18 (6-25); CALCIUM 8.7 mg/dL (8.4-10.2); CARBON DIOXIDE 26 mmol/L (22-29); CHLORIDE 101 mmol/L (98-107); CREATININE, SERUM 0.99 mg/dL (0.72-1.25); EST GLOMERULAR FILTRATION RATE > 60 ML/MIN (60-); GLUCOSE 106 mg/dL (74-118); POTASSIUM 3.1 mmol/L (3.5-5.1); SODIUM 139 mmol/L (136-145)
[2018-06-14 07:00] LABS: CREATINE KINASE MB 2.9 ng/mL (0-5.0)
--- NOTE | 2018-06-14 07:02 | NUR ---
PRIMARY CARE PHYSICIAN: Dr. Wei Kate CARDIOLOGY: Dr. Espinal CHIEF COMPLAINT: Shortness of breath with exertion. HISTORY OF PRESENT ILLNESS: This is 82-year-old man p/w sob, with CHF exa. Pt had all 5 teeth pulled from lower jaw, started eating canned soup with salt load. Developed SOB. No leg edema. PAST MEDICAL HISTORY: Severe Systolic CHF LVEF 15%, B/L pleural effusions, hypertension, hyperlipidemia, hypotension, peripheral vascular disease, bradycardia, LBBB, BPH, Neuropathy PAST SURGICAL HISTORY: Tonsillectomy, hernia repair. ALLERGIES: PER ELECTRONIC MEDICAL RECORD. FAMILY HISTORY: Four strokes and 3 MIs in his father. SOCIAL HISTORY: Patient is . He has 5 children. No alcohol or illicits. He has a remote history of smoking. MEDICATIONS: Per electronic medical record. REVIEW OF SYSTEMS: no f/c/s/N/V/D/MEREDITH/vision changes/skin rash/leg pain/back pain PHYSICAL EXAMINATION: VITAL SIGNS: Reviewed. GENERAL APPEARANCE: Tired-appearing man resting in bed. HEENT: Anicteric. Pupils respond to light. No oral lesions. CARDIOVASCULAR: Normal S1 and S2. LUNGS: reduced BS throughout; no w ABDOMEN: Soft, nontender. EXTREMITIES: Trace edema. SKIN: Dry. PSYCHIATRIC: Flat affect. LABS: Reviewed. MEDICATIONS: Reviewed. ASSESSMENT AND PLAN: This is an 82-year-old man. 1. AECHF- systolicl; lvef was 15%; has AICD; 2.Pulmonary edema 3.Overweight with BMI 26 (less) 4.LBBB 5.HTN 6.BPH 7.MELO 8.Hypokalemia 9.Neuropathy PLAN 1.iv diuretics 2.monitor renal fn 3.monitor K 4.Counseled on avoidance of canned soup and salt 5.strict I/O 6.f/u labs 7.scd; 8.d/c planning Tomás Vickers MD, PhD.
--- NOTE | 2018-06-14 07:07 | NUR ---
PT RESTING .DENIES PAIN .REPORT GIVEN TO THE ON COMING NURSE.
[2018-06-14] MEDS ORDERED: DOCUSATE SODIUM 100 MG CAP PO PRN (07:15)
[2018-06-14 07:32] LABS: CHOL/HDL RATIO 2.9 (3.9-4.7)
[2018-06-14 07:51] LABS: THYROID STIMULATING HORMONE 1.29 uIU/mL (0.350-4.940)
[2018-06-14] MEDS: ASPIRIN 325 MG TAB EC PO SCH (09:00)
[2018-06-14] MEDS: TAMSULOSIN HCL 0.4 MG CAP PO SCH (09:00)
[2018-06-14] MEDS: METOPROLOL TARTRATE 50 MG TAB PO SCH ×2 (09:00→19:15)
[2018-06-14] MEDS ORDERED: FUROSEMIDE INJ 10 MG/ML 4 ML VIAL IV SCH (09:00)
[2018-06-14] MEDS: DUTASTERIDE 0.5 MG CAP PO SCH (09:00)
[2018-06-14] MEDS ORDERED: LISINOPRIL 2.5 MG TAB PO SCH (09:00)
[2018-06-14] MEDS: FUROSEMIDE INJ 10 MG/ML 2 ML VIAL IV SCH ×2 (09:00→17:00)
--- NOTE | 2018-06-14 11:45 | NUR ---
SPOKE WITH DR RUSTY VALDEZ;LOW BP 87/58,ORDERS WRITTEN.
[2018-06-14] MEDS ORDERED: MIDODRINE 2.5 MG TAB PO SCH (12:00)
--- NOTE | 2018-06-14 15:49 | NUR ---
CASE MANAGEMENT INITIAL ASSESSMENT State Trooper to bedside to discuss plan of care with patient/family. CM/SW role and care transitions discussed. Anticipated discharge plan discussed along with duration of care. CM/SW discussed patients right to make decisions in care. CM/SW work hours given. Patient lives: Admit/Transfer: ER POA/Emergency contact: ARAMIS TERRAZAS [phone] Current/Previous Home Health: NONE PCP/Follow-up Care: DR JUAN CARLOS MOYA Current/Previous DME: NONE Other Services: N/A Employment Status: RETIRED Areas of Concerns: NONE Referral Needs: N/A Education Needs: F/U WITH CARDIOLOGY AND PCP IMM/KWONG given and signed (if applicable): IMM SIGNED 06/16 Goal for discharge:HOME WITH CM/SW left business card at the bedside with contact information. Name and number was also written on the patients whiteboard. Patient verbalized understanding of discussion. CM will follow-up with ongoing discharge and transition of care needs.
[2018-06-14] MEDS ORDERED: MIDODRINE HCL 5 MG TABLET PO SCH (16:00)
[2018-06-14] MEDS: MIDODRINE HCL 5 MG TABLET PO SCH (17:30)
--- NOTE | 2018-06-14 19:42 | NUR ---
Received change of shift report from AM nurse. Walking rounds completed.
[2018-06-15] VITALS (7 sets, daily range): BP systolic 82–114; BP diastolic 58–74
--- NOTE | 2018-06-15 | NUR ---
Patient AAOx3. In bed in supine position. Denies any pain or discomfort. Rate rate range from 82-131. Patient denies c.p. When HR at 130 bp is 78/53 or 85/60. Unable to give metoprolol due to low BP. Patient state I feel like dancing. Patient asymptomatic. AAOx3 ambulates with no difficulty noted. at bedside. Continue monitor.
--- NOTE | 2018-06-15 02:00 | NUR ---
Patient rate continue to bounce around. Patient with no sign or symptom noted. Continue monitor.
[2018-06-15 06:08] LABS: BASOPHILS % 0.6 % (0.0-1.0); EOSINOPHILS # (AUTO) 0.3 (0.0-0.4); EOSINOPHILS % 3.9 % (0.0-6.0); HEMATOCRIT 41.4 % (38.2-49.6); HEMOGLOBIN 14.1 g/dL (14.0-18.0); LYMPHOCYTES # (AUTO) 2.2 (1.0-3.2); LYMPHOCYTES % 31.2 % (18.0-39.1); MEAN CORPUSCULAR HEMOGLOBIN 30.6 pg (28-32); MEAN CORPUSCULAR HGB CONC 34.1 g/dL (31-35); MEAN CORPUSCULAR VOLUME 89.8 fL (81-99); MONOCYTES # (AUTO) 0.8 (0.2-0.8); MONOCYTES % 11.1 % (4.4-11.3); NEUTROPHILS # (AUTO) 3.8 (2.1-6.9); NEUTROPHILS % 52.8 % (38.7-80.0); PLATELET COUNT 153 x10e3/uL (140-360); RED BLOOD COUNT 4.61 x10e6/uL (4.3-5.7); RED CELL DISTRIBUTION WIDTH 13.3 % (11.7-14.4)
--- NOTE | 2018-06-15 06:24 | NUR ---
Patient HR elevated to 131. Patient c/o small c.p. Called Dr Vickers and received orders for stat EKG, trops. Consult Dr Meyers. done.
--- NOTE | 2018-06-15 06:34 | NUR ---
IM- Progress note O/N; hypotensive and tachycardic REVIEW OF SYSTEMS: no f/c/s/N/V/D/MEREDITH/vision changes/skin rash/leg pain/back pain PHYSICAL EXAMINATION: VITAL SIGNS: Reviewed. GENERAL APPEARANCE: Tired-appearing man resting in bed. HEENT: Anicteric. Pupils respond to light. No oral lesions. CARDIOVASCULAR: Normal S1 and S2. LUNGS: reduced BS throughout; no w ABDOMEN: Soft, nontender. EXTREMITIES: Trace edema. SKIN: Dry. PSYCHIATRIC: Flat affect. LABS: Reviewed. MEDICATIONS: Reviewed. ASSESSMENT AND PLAN: This is an 82-year-old man. 1. AECHF- systolicl; lvef was 15%; has AICD; 2.Pulmonary edema 3.Overweight with BMI 26 (less) 4.LBBB 5.HTN 6.BPH 7.MELO 8.Hypokalemia 9.Neuropathy PLAN 1.iv diuretics 2.monitor renal fn 3.monitor K 4.Counseled on avoidance of canned soup and salt 5.strict I/O 6.f/u labs 7.scd; 8.d/c planning 06/15 hypotensive and tachycardic; check Tn and EKG now; 2D echo; cardio consult; Hold lasix; d/c BB and aceI. continue midodrine; check cortisol level. Tomás Vickers MD, PhD.
[2018-06-15 07:50] LABS: ANION GAP 14.5 mmol/L (8-16); BLOOD UREA NITROGEN 19 mg/dL (7-26); BUN/CREATININE RATIO 18 (6-25); CALCIUM 8.9 mg/dL (8.4-10.2); CARBON DIOXIDE 26 mmol/L (22-29); CHLORIDE 103 mmol/L (98-107); CREATININE, SERUM 1.07 mg/dL (0.72-1.25); EST GLOMERULAR FILTRATION RATE > 60 ML/MIN (60-); GLUCOSE 102 mg/dL (74-118); POTASSIUM 3.5 mmol/L (3.5-5.1); SODIUM 140 mmol/L (136-145)
[2018-06-15] MEDS: MIDODRINE HCL 5 MG TABLET PO SCH ×3 (08:00→17:30)
[2018-06-15] MEDS: DUTASTERIDE 0.5 MG CAP PO SCH (09:00)
[2018-06-15] MEDS: TAMSULOSIN HCL 0.4 MG CAP PO SCH (09:00)
[2018-06-15] MEDS: ASPIRIN 325 MG TAB EC PO SCH (09:00)
[2018-06-15] MEDS: FUROSEMIDE INJ 10 MG/ML 2 ML VIAL IV SCH ×2 (09:00→17:30)
[2018-06-15] MEDS: METOPROLOL TARTRATE INJ 1 MG/ML VIAL IV PRN (15:30)
--- NOTE | 2018-06-15 15:30 | NUR ---
pt hr 130 ,gave 2.5 metotropol .hr finished 94
--- NOTE | 2018-06-15 17:35 | NUR ---
spoke with dr metzger concerning hr,orders given to give lasix.and would see pt tomorrow.
--- NOTE | 2018-06-15 19:25 | NUR ---
Received change of shift report from AM nurse. Walking rounds completed.
[2018-06-15] MEDS: GABAPENTIN 100 MG CAP PO SCH (20:18)
[2018-06-16] VITALS (8 sets, daily range): BP systolic 99–127; BP diastolic 64–87
--- NOTE | 2018-06-16 | NUR ---
Patient HR from 80-131. HR elevated with activity. at bedside.
--- NOTE | 2018-06-16 00:25 | Consultation ---
DATE OF CONSULTATION: June 15, 2018 CARDIOLOGY CONSULT NOTE REASON FOR CONSULT: Dnxbs-fb-gnpumud systolic CHF exacerbation. CHIEF COMPLAINT: Shortness of breath. HPI: Patient is an 83-year-old man with history of cardiomyopathy, EF less than 15%, status post ICD placement who recently had his teeth pulled and since then he has been eating canned soup. Started developing lower extremity edema and shortness of breath. He did not know that canned soup contains significant amount of sodium. He has been compliant with his medications. Denies any chest pain. REVIEW OF SYSTEMS: As above, otherwise negative. OUTPATIENT MEDICATIONS: Reviewed. FAMILY HISTORY: Noncontributory. SOCIAL HISTORY: Patient does not smoke, drink, or abuse drugs. PHYSICAL EXAMINATION VITAL SIGNS: Temperature 96.5, pulse 66, respiratory rate 18, blood pressure 105/62, and satting 95% on 2 L nasal cannula. GENERAL: Elderly man, no acute distress. CARDIOVASCULAR: Regular rate and rhythm. No murmurs, rubs, or gallops. LUNGS: Clear to auscultation. Bibasilar crackles. ABDOMEN: Soft, nontender, and nondistended. NEURO AND PSYCH: Nonfocal. INPATIENT MEDICATIONS: Reviewed. LABORATORY DATA: Reviewed. BNP on admission was 700. Troponin negative x3. IMAGING DATA: Reviewed. TELEMETRY DATA: Reviewed, shows paced rhythm. ASSESSMENT 1. Rogdg-ny-msjnnfh systolic congestive heart failure. 2. History of implantable cardioverter-defibrillator placement. 3. Pulmonary edema. 4. Hypertension. 5. Acute kidney injury. PLAN: Continue gentle IV diuresis. Patient is already feeling significantly better. Discussed with patient regarding reading labels about sodium. Doing well from cardiovascular standpoint. Can switch to p.o. Lasix today with potential discharge. Thank you for this consult. We will continue to follow. Job#: [id number]
[2018-06-16] MEDS: METOPROLOL TARTRATE INJ 1 MG/ML VIAL IV PRN ×2 (04:09→12:54)
--- NOTE | 2018-06-16 06:01 | NUR ---
Given BP/heart med for HR of 130. Heart rate down to 80 . Continue monitor.
[2018-06-16 06:04] LABS: BASOPHILS % 0.6 % (0.0-1.0); EOSINOPHILS # (AUTO) 0.3 (0.0-0.4); EOSINOPHILS % 3.6 % (0.0-6.0); HEMATOCRIT 41.5 % (38.2-49.6); HEMOGLOBIN 14.7 g/dL (14.0-18.0); LYMPHOCYTES # (AUTO) 2.4 (1.0-3.2); LYMPHOCYTES % 34.5 % (18.0-39.1); MEAN CORPUSCULAR HEMOGLOBIN 31.6 pg (28-32); MEAN CORPUSCULAR HGB CONC 35.4 g/dL (31-35); MEAN CORPUSCULAR VOLUME 89.2 fL (81-99); MONOCYTES # (AUTO) 0.7 (0.2-0.8); MONOCYTES % 10.5 % (4.4-11.3); NEUTROPHILS # (AUTO) 3.5 (2.1-6.9); NEUTROPHILS % 50.5 % (38.7-80.0); PLATELET COUNT 153 x10e3/uL (140-360); RED BLOOD COUNT 4.65 x10e6/uL (4.3-5.7); RED CELL DISTRIBUTION WIDTH 13.4 % (11.7-14.4)
--- NOTE | 2018-06-16 06:22 | NUR ---
Discharge Summary: Principal Dx: ASSESSMENT AND PLAN: This is an 82-year-old man. 1. AECHF- systolicl; lvef was 15%; has AICD; 2.Pulmonary edema 3.Overweight with BMI 26 (less) 4.LBBB 5.HTN 6.BPH 7.MELO 8.Hypokalemia 9.Neuropathy Secondary Dx: CHF cc and HPI; refer to H&P Hospital course: ASSESSMENT AND PLAN: This is an 82-year-old man. 1. AECHF- systolicl; lvef was 15%; has AICD; 2.Pulmonary edema 3.Overweight with BMI 26 (less) 4.LBBB 5.HTN 6.BPH 7.MELO 8.Hypokalemia 9.Neuropathy PLAN 1.iv diuretics 2.monitor renal fn 3.monitor K 4.Counseled on avoidance of canned soup and salt 5.strict I/O 6.f/u labs 7.scd; 8.d/c planning 06/15 hypotensive and tachycardic; check Tn and EKG now; 2D echo; cardio consult; Hold lasix; d/c BB and aceI. continue midodrine; check cortisol level. 06/16 cortisol appropriate; Tn negative; BP improved after stopping antiHTN meds. Counseled on CHF diet/lifestle; d/c home d/c condition; improving f/u PCP 1 week and /Brandi 1 week d/c time>35mins Tomás Vickers MD, PhD.
[2018-06-16 06:30] LABS: ANION GAP 14.5 mmol/L (8-16); CALCIUM 9.1 mg/dL (8.4-10.2); MAGNESIUM 2.2 MG/DL (1.3-2.1); POTASSIUM 3.5 mmol/L (3.5-5.1)
[2018-06-16 06:48] LABS: CREATININE, SERUM 1.15 mg/dL (0.72-1.25)
--- NOTE | 2018-06-16 07:35 | NUR ---
RECEIVED PATIENT RESTING IN BED. NO ACUTE DISTRESS NOTED. CALL LIGHT WITHIN REACH. BED IN THE LOWEST POSITION.
[2018-06-16] MEDS ORDERED: DOCUSATE SODIUM LIQD 100 MG/10 ML UDC NG SCH (09:00)
[2018-06-16] MEDS: ASPIRIN 325 MG TAB EC PO SCH (09:30)
[2018-06-16] MEDS: DUTASTERIDE 0.5 MG CAP PO SCH (09:30)
[2018-06-16] MEDS: FUROSEMIDE INJ 10 MG/ML 2 ML VIAL IV SCH ×2 (09:30→17:18)
[2018-06-16] MEDS: TAMSULOSIN HCL 0.4 MG CAP PO SCH (09:30)
[2018-06-16] MEDS: MIDODRINE HCL 5 MG TABLET PO SCH ×3 (09:30→17:18)
[2018-06-16] MEDS ORDERED: MIDODRINE HCL5 MG PO (10:13)
--- NOTE | 2018-06-16 10:51 | NUR ---
PAGED DR. Tati FRANCO IN REGARDS TO PATIENT'S HR STAYING IN THE 130'S. LEFT MESSAGE WITH OFFICE STAFF.
--- NOTE | 2018-06-16 11:35 | NUR ---
DR. Tati FRANCO ROUNDING ON PATIENT. CALLED FOR A PACEMAKER INTERROGATION.
[2018-06-16] MEDS ORDERED: METOPROLOL TARTRATE 50 MG TAB PO SCH ×2 (13:06→13:15)
--- NOTE | 2018-06-16 13:07 | NUR ---
DR. Tati FRANCO CALLED WITH NEW ORDERS FOR PATIENT'S HR.
[2018-06-16] MEDS: METOPROLOL TARTRATE 50 MG TAB PO SCH ×2 (13:23→20:42)
--- NOTE | 2018-06-16 14:31 | NUR ---
PATIENT HR IS 84 PACED PER TELEMETRY.
--- NOTE | 2018-06-16 15:52 | NUR ---
IMM SIGNED FOR INPT, EXPLAINED AND PLACED IN CHART COPY TO PT IN CARE TRANSITION FOLDER
--- NOTE | 2018-06-16 16:22 | Progress Note ---
DATE: June 16, 2018 CARDIOLOGY PROGRESS NOTE SUBJECTIVE: No major events overnight. Continues to feel short of breath. OBJECTIVE VITAL SIGNS: Temperature afebrile, pulse 120, respiratory rate 20, blood pressure 125/87, satting 95% on nasal cannula. GENERAL: Elderly man, no acute distress. CARDIOVASCULAR: Regular rate and rhythm. Tachycardiac. No murmurs. LUNGS: Clear to auscultation. Mild crackles bilaterally. ABDOMEN: Soft, nontender, nondistended. NEURO AND PSYCH: Alert and oriented to person, place and time. Normal affect. TELEMETRY DATA: Reviewed. LABORATORY DATA: Reviewed. INPATIENT MEDICATIONS: Reviewed. IMAGING DATA: Reviewed. ASSESSMENTS 1. Pfkkj-el-minrxie systolic congestive heart failure exacerbation. 2. History of biventricular internal cardioverter-defibrillator placement. 3. Pulmonary edema. 4. Hypertension. 5. Acute kidney injury. 6. Atrial tachycardia. PLAN: Had his ICD interrogated today, shows that patient is currently in atrial tachycardia with rapid ventricular response, heart rate is in the 120s to 130. Patient was taken off his home dose metoprolol on admission. Will resume his metoprolol 50 mg b.i.d. This should help resolve his atrial tachycardia. Continue p.r.n. IV metoprolol in the meantime. Echocardiogram has been performed this morning. Will follow up on the results. Hold discharge for today. Likely discharge tomorrow after his heart rate is better controlled. Thank you for this consult. Will continue to follow. Job#: [id number] RIMA
--- NOTE | 2018-06-16 18:13 | NUR ---
CALLED TELEMETRY TO ASSESS PATIENT'S HR, HE IS RUNNING PACED @ 80.
--- NOTE | 2018-06-16 19:05 | NUR ---
REPORT GIVEN TO ONCOMING NURSE, PATIENT IS IN STABLE CONDITION. NO ACUTE DISTRESS NOTED. AT BEDSIDE. CALL LIGHT WITHIN REACH. BED IN THE LOWEST POSITION.
--- NOTE | 2018-06-16 19:32 | NUR ---
Received change of shift report from AM nurse. Walking rounds completed.
[2018-06-16] MEDS: GABAPENTIN 100 MG CAP PO SCH (20:43)
[2018-06-17] VITALS (7 sets, daily range): BP systolic 92–118; BP diastolic 51–77
--- NOTE | 2018-06-17 | NUR ---
Patient up ambulating in room with no difficuty.
--- NOTE | 2018-06-17 06:36 | NUR ---
Patient resting quitly at the time. Continue monitor.
--- NOTE | 2018-06-17 07:08 | NUR ---
RECEIVED PATIENT RESTING IN BED WITH EYES CLOSED. RESPIRATIONS EVEN AND UNLABORED, NO ACUTE DISTRESS NOTED. AT BEDSIDE. CALL LIGHT WITHIN REACH. BED IN THE LOWEST POSITION.
[2018-06-17] MEDS: ASPIRIN 325 MG TAB EC PO SCH (08:57)
[2018-06-17] MEDS: MIDODRINE HCL 5 MG TABLET PO SCH ×3 (08:57→16:48)
[2018-06-17] MEDS: FUROSEMIDE INJ 10 MG/ML 2 ML VIAL IV SCH ×2 (08:57→16:48)
[2018-06-17] MEDS: DOCUSATE SODIUM 100 MG CAP PO SCH (08:57)
[2018-06-17] MEDS: TAMSULOSIN HCL 0.4 MG CAP PO SCH (08:57)
[2018-06-17] MEDS: DUTASTERIDE 0.5 MG CAP PO SCH (08:57)
[2018-06-17] MEDS: METOPROLOL TARTRATE 50 MG TAB PO SCH ×2 (08:58→21:38)
[2018-06-17] MEDS: METOPROLOL TARTRATE INJ 1 MG/ML VIAL IV PRN (11:45)
--- NOTE | 2018-06-17 11:45 | NUR ---
CALLED TELEMETRY TO FIND OUT PATIENTS HR, PER INTELLIGENCE OPERATIONS IT'S 131. PATIENT MEDICATED WITH PRN METOPROLOL 5MG IV. WILL RE-ASSESS.
--- NOTE | 2018-06-17 12:16 | NUR ---
CALLED TELEMETRY TO RE-ASSESS PATIENT'S HR. PER COMMUNITY OUTREACH WORKER, PATIENT'S HR IS DOWN TO 97.
--- NOTE | 2018-06-17 12:49 | NUR ---
ASKED DR. OJEDA IF HE WANTED TO REPEAT A MAGNESIUM LEVEL ON PATIENT DUE TO BEING 2.2 YESTERDAY AND NO LABS FOR TODAY. NO ANSWER, WAITING HARDWOOD FINISHER BACK.
--- NOTE | 2018-06-17 15:12 | NUR ---
MARINE PROPULSION TECHNICIAN CALLED NURSE TO NOTIFY THAT PATIENT'S HR IS IN THE 130S AGAIN, NOTIFIED DR. WEINER. PER HE WILL ENTER NEW ORDERS FOR PATIENT.
[2018-06-17] MEDS ORDERED: DIGOXIN INJ 0.25 MG/ML 2 ML AMP IV NR (15:15)
[2018-06-17] MEDS ORDERED: POTASSIUM CHLORIDE 20 MEQ TAB CR PO NR (15:30)
--- NOTE | 2018-06-17 16:45 | Progress Note ---
DATE: CARDIOLOGY PROGRESS NOTE SUBJECTIVE: Patient is feeling better. Denies any palpitations, shortness of breath, or chest pain. OBJECTIVE VITAL SIGNS: Temperature is 98, heart rate at the time of my examination was in the 90s, current heart rate is 120, blood pressure is 115/77, oxygen saturation 95% on room air, respiratory rate is 18. GENERAL: He is well-appearing, no apparent distress, seen walking from bathroom. CARDIOVASCULAR: He is irregularly irregular, tachycardia. LUNGS: Decreased breath sounds in bilateral bases. ABDOMEN: Soft, nontender, and nondistended. EXTREMITIES: Trace edema. CARDIOVASCULAR MEDICATIONS: Reviewed. LABORATORY DATA: Reviewed. Potassium 3.5. TELEMETRY MONITORING: Revealed atrial fibrillation with ventricularly paced rhythm with the heart rate in 120s. IMPRESSION 1. Atrial tachycardia. 2. Cnjnm-rd-imwnxye systolic congestive heart failure. 3. Presence of an implantable cardioverter-defibrillator. 4. Hypotension. 5. Acute kidney injury. 6. Hypokalemia. RECOMMENDATIONS: ICD interrogated yesterday, revealed an atrial tachycardia with rapid ventricular response. Patient continues to have paroxysms of this arrhythmia. His metoprolol was increased to 50 b.i.d. His blood pressure is tenuous on the low side. We will add digoxin today and check a level morning. Replace potassium today, keep level closer to 4. Echocardiogram reviewed and showed a severely depressed left ventricular systolic function. Continue all other optimum medical therapy for his heart failure. If patient has adequate heart rate control tomorrow, may consider discharge. Job#: [id number] THOMAS
--- NOTE | 2018-06-17 17:35 | NUR ---
IM- Progress note O/N; hypotensive and tachycardic REVIEW OF SYSTEMS: no f/c/s/N/V/D/MEREDITH/vision changes/skin rash/leg pain/back pain PHYSICAL EXAMINATION: VITAL SIGNS: Reviewed. GENERAL APPEARANCE: Tired-appearing man resting in bed. HEENT: Anicteric. Pupils respond to light. No oral lesions. CARDIOVASCULAR: Normal S1 and S2. LUNGS: reduced BS throughout; no w ABDOMEN: Soft, nontender. EXTREMITIES: Trace edema. SKIN: Dry. PSYCHIATRIC: Flat affect. LABS: Reviewed. MEDICATIONS: Reviewed. ASSESSMENT AND PLAN: This is an 82-year-old man. 1. AECHF- systolicl; lvef was 15%; has AICD; 2.Pulmonary edema 3.Overweight with BMI 26 (less) 4.LBBB 5.HTN 6.BPH 7.MELO 8.Hypokalemia 9.Neuropathy PLAN 1.iv diuretics 2.monitor renal fn 3.monitor K 4.Counseled on avoidance of canned soup and salt 5.strict I/O 6.f/u labs 7.scd; 8.d/c planning 06/15 hypotensive and tachycardic; check Tn and EKG now; 2D echo; cardio consult; Hold lasix; d/c BB and aceI. continue midodrine; check cortisol level. 06/[address] due to elevated HR 06/17 monitor; Tomás Vickers MD, PhD.
--- NOTE | 2018-06-17 17:43 | NUR ---
CAN TECHNICIAN CALLED TO NOTIFY NURSE THAT PATIENT HAS HR IN THE 130S. PULSE UPON PALPATION WAS 86.
[2018-06-17 17:58] LABS: ANION GAP 16.3 mmol/L (8-16); CALCIUM 8.8 mg/dL (8.4-10.2); CREATININE, SERUM 1.17 mg/dL (0.72-1.25); MAGNESIUM 2.2 MG/DL (1.3-2.1); POTASSIUM 3.3 mmol/L (3.5-5.1)
--- NOTE | 2018-06-17 18:35 | NUR ---
NOTIFIED DR. OJEDA OF PATIENT'S POTASSIUM OF 3.3 AND MAGNESIUM LEVEL OF 2.2. NEW ORDERS RECEIVED FOR POTASSIUM 40 MEQ PO ONCE.
[2018-06-17] MEDS ORDERED: POTASSIUM CHLORIDE 20 MEQ TAB CR PO ONE (18:45)
--- NOTE | 2018-06-17 19:28 | NUR ---
REPORT GIVEN TO ONCOMING NURSE. PATIENT IS SITTING UP IN BED, NO ACUTE DISTRESS NOTED. CALL LIGHT WITHIN REACH. BED IN THE LOWEST POSITION. BED ALARM ON.
--- NOTE | 2018-06-17 19:50 | NUR ---
SPOKE TO DR. OJEDA AT THIS TIME. NEW ORDERS RCV FOR SOAPSUDS ENEMA X1 AND BMP IN THE MORNING.
[2018-06-17] MEDS: GABAPENTIN 100 MG CAP PO SCH (21:37)
--- NOTE | 2018-06-17 23:54 | NUR ---
PT REFUSED SOAPSUDS ENEMA. PT VOICED HAVING BM AT THIS TIME.
[2018-06-18] VITALS (8 sets, daily range): BP systolic 99–121; BP diastolic 63–84
[2018-06-18 06:05] LABS: ANION GAP 16.8 mmol/L (8-16); BLOOD UREA NITROGEN 21 mg/dL (7-26); BUN/CREATININE RATIO 21 (6-25); CALCIUM 8.8 mg/dL (8.4-10.2); CARBON DIOXIDE 23 mmol/L (22-29); CHLORIDE 105 mmol/L (98-107); CREATININE, SERUM 0.99 mg/dL (0.72-1.25); EST GLOMERULAR FILTRATION RATE > 60 ML/MIN (60-); GLUCOSE 96 mg/dL (74-118); POTASSIUM 3.8 mmol/L (3.5-5.1); SODIUM 141 mmol/L (136-145)
--- NOTE | 2018-06-18 07:06 | NUR ---
RECEIVED PATIENT RESTING IN BED. NO ACUTE DISTRESS NOTED. AT BEDSIDE. CALL LIGHT WITHIN REACH. BED IN THE LOWEST POSITION.
[2018-06-18] MEDS: MIDODRINE HCL 5 MG TABLET PO SCH ×3 (08:47→15:31)
[2018-06-18] MEDS: FUROSEMIDE INJ 10 MG/ML 2 ML VIAL IV SCH ×3 (08:47→17:32)
[2018-06-18] MEDS: ASPIRIN 325 MG TAB EC PO SCH (08:47)
[2018-06-18] MEDS: DOCUSATE SODIUM 100 MG CAP PO SCH (08:47)
[2018-06-18] MEDS: DUTASTERIDE 0.5 MG CAP PO SCH (08:47)
[2018-06-18] MEDS: TAMSULOSIN HCL 0.4 MG CAP PO SCH (08:47)
[2018-06-18] MEDS: METOPROLOL TARTRATE 50 MG TAB PO SCH (08:48)
[2018-06-18] MEDS ORDERED: DIGOXIN 0.125 MG TAB PO SCH (09:00)
--- NOTE | 2018-06-18 13:05 | NUR ---
CALLED TELEMETRY TO ASSESS WHAT'S PATIENT RHYTHM, HE IS RUNNING PACED AT 86.
--- NOTE | 2018-06-18 17:56 | Progress Note ---
DATE: CARDIOLOGY PROGRESS NOTE SUBJECTIVE: Patient denies any chest pain, shortness of breath, palpitations. OBJECTIVE VITAL SIGNS: Temperature is 96.1, heart rate is 80, respirations are 18, blood pressure is 117/79, oxygen saturation is 94% on room air. GENERAL: Well-appearing elderly man seated at bedside, eating lunch, no apparent stress. CARDIOVASCULAR: He is irregular, normal rate. No murmurs. LUNGS: Clear to auscultation. ABDOMEN: Soft, nontender. EXTREMITIES: No edema. CARDIOVASCULAR MEDICATIONS: Reviewed. LABORATORY DATA: Reviewed. TELEMETRY: Monitoring revealed ventricular paced rhythm with rare premature ventricular complexes. IMPRESSION 1. Atrial tachycardia. 2. Mcesr-fy-crkchvz systolic congestive heart failure. 3. Presence of implantable cardioverter-defibrillator. 4. Hypotension. 5. Acute kidney injury. 6. Hypokalemia. RECOMMENDATIONS: His implantable cardioverter-defibrillator was interrogated, revealed an atrial tachycardia with rapid ventricular response. Digoxin was added yesterday, and we will continue this for adequate heart rate control in addition to metoprolol 50 b.i.d.. Blood pressure was on the low side and was receiving midodrine at home. Patient is stable for discharge from a cardiovascular standpoint. Job#: [id number]
--- NOTE | 2018-06-18 18:55 | NUR ---
Discharge Summary: Principal Dx: ASSESSMENT AND PLAN: This is an 82-year-old man. 1. AECHF- systolicl; lvef was 15%; has AICD; 2.Pulmonary edema 3.Overweight with BMI 26 (less) 4.LBBB 5.HTN 6.BPH 7.MELO 8.Hypokalemia 9.Neuropathy Secondary Dx: CHF cc and HPI; refer to H&P Hospital course: ASSESSMENT AND PLAN: This is an 82-year-old man. 1. AECHF- systolicl; lvef was 15%; has AICD; 2.Pulmonary edema 3.Overweight with BMI 26 (less) 4.LBBB 5.HTN 6.BPH 7.MELO 8.Hypokalemia 9.Neuropathy PLAN 1.iv diuretics 2.monitor renal fn 3.monitor K 4.Counseled on avoidance of canned soup and salt 5.strict I/O 6.f/u labs 7.scd; 8.d/c planning 06/15 hypotensive and tachycardic; check Tn and EKG now; 2D echo; cardio consult; Hold lasix; d/c BB and aceI. continue midodrine; check cortisol level. 06/16 cortisol appropriate; Tn negative; BP improved after stopping antiHTN meds. Counseled on CHF diet/lifestle; 06/18 remained in hospital for medication adjustments; cardiac device interrogated; ok to d/c home on cardiac medication regimen; d/c home d/c condition; improving f/u PCP 1 week and /Brandi 1 week d/c time>35mins Tomás Vickers MD, PhD.
--- NOTE | 2018-06-18 19:00 | NUR ---
REPORT GIVEN TO ONCOMING NURSE. PATIENT IS RESTING IN BED. NO ACUTE DISTRESS NOTED. AT BEDSIDE. CALL LIGHT WITHIN REACH. BED IN THE LOWEST POSITION.
[2018-06-18] MEDS ORDERED: METOPROLOL TART50 MG PO (19:34)
[2018-06-18] MEDS ORDERED: DIGOXIN125 MCG PO (19:35)
--- NOTE | 2018-06-18 20:28 | NUR ---
PT DC'D HOME. VITAL SIGNS STABLE. LEFT FA IV REMOVED WITH TIP INTACT. PRESSURE DRESSING APPLIED. DISCHARGE INSTRUCTION AND PRESCRIPTIONS GIVEN. BELONGINGS GATHERED BY .
== END 2018-06-18 20:28 | disposition home or self-care (01) | DRG 291 ==
LOC: ER 15:20 → ERHOLD 19:05 → MED/SURG3 20:30 → OBSVTOIN 06-16 14:30
PROVIDERS: ADMIT Internal Medicine; ATTEND Internal Medicine
DX: I13.0 Hypertensive heart and chronic kidney disease with heart failure and stage 1 through stage 4 chronic kidney disease, or unspecified chronic kidney disease (principal); I50.23 Acute on chronic systolic (congestive) heart failure; N17.9 Acute kidney failure, unspecified; I47.1 Supraventricular tachycardia; N18.9 Chronic kidney disease, unspecified; Z95.810 Presence of automatic (implantable) cardiac defibrillator; E87.6 Hypokalemia; I95.9 Hypotension, unspecified; E66.3 Overweight; Z68.26 Body mass index [BMI] 26.0-26.9, adult; I44.7 Left bundle-branch block, unspecified; N40.0 Benign prostatic hyperplasia without lower urinary tract symptoms; G62.9 Polyneuropathy, unspecified
CPT/HCPCS: 36415; 71045; 80048; 80053; 80061; 80162; 82533; 82550; 82553; 83735; 83880; 84443; 84484; 85025; 85610; 85730; 93005; 93306; 99284; G0378; J1160; J1940

== ENCOUNTER → 2021-03-03 | Outpatient (CLI) | payer MEDICARE ==
[~2021-03-03] MED LIST changes: +COLACE100 MG PO; +DIGOXIN125 MCG PO; +ECOTRIN325 MG PO; +GABAPENTIN100 MG PO; +METOPROLOL TART50 MG PO; +MIDODRINE HCL5 MG PO
== END ==
LOC: RAD 14:22
PROVIDERS: ATTEND Family Medicine
DX: M25.421 Effusion, right elbow (principal)